=== PATIENT | female | born 1980 | race Caucasian/White ===

== ENCOUNTER 2019-11-19 21:51 | Emergency (ER) | payer BC, OTHER ==
[~2019-11-19] VITALS: Ht 170 cm; Wt 79.0 kg
--- NOTE | 2019-11-19 22:12 | ED Lower Extremity ---
General Chief Complaint: Lower Extremity Stated Complaint: FELL,HIP PAIN Source: patient Exam Limitations: no limitations History of Present Illness Date Seen by Provider: Nov 19, 2019 Time Seen by Provider: 22:00 Initial Comments The patient is a pleasant 39-year-old female presents for evaluation of right hip/pelvis discomfort. She states that this morning she was getting out of her car and almost fell to the ground but caught herself. In the process her right leg abducted and she felt a pop and has been having pain to the lateral right hip as well as the posterior buttock pelvis region. She was able to drive herself to the emergency department but states that she had to rotate in the car seat to decrease her pain. She is able to ambulate into the emergency department but was favoring the opposite leg and was hobbling. She has no other complaints at this time. She is alert and oriented 4, calm, and appears to be in no distress. Onset: this morning Pain/Injury Location: right hip Method of Injury: twisted Modifying Factors: Improves With Movement (makes it worse), Improves With Rest (makes it better) Allergies and Home Medications Allergies Coded Allergies: No Known Drug Allergies (Unverified , 11/19/19) Patient Home Medication List Home Medication List Reviewed: Yes Review of Systems Constitutional: no symptoms reported EENTM: no symptoms reported Respiratory: no symptoms reported Cardiovascular: no symptoms reported Gastrointestinal: no symptoms reported Genitourinary: no symptoms reported Musculoskeletal: joint pain (right hip/pelvis pain) Skin: no symptoms reported Psychiatric/Neurological: No Symptoms Reported All Other Systems Reviewed Negative Unless Noted: Yes Past Ufjdpnd-Lvxsnc-Fhkchg Hx Past Med/Social Hx: Reviewed Nursing Past Med/Soc Hx Patient Social History Recent Foreign Travel: No Contact w/Someone Who Travel: No Physical Exam Vital Signs Vital Signs - First Documented 11/19/19 22:00 Temp 36.0 Pulse 100 Resp 16 B/P (MAP) 119/81 (94) Pulse Ox 98 O2 Delivery Room Air Capillary Refill : Height, Weight, BMI Height: '" Weight: lbs. oz. kg; BMI Method: General Appearance: WD/WN, no apparent distress HEENT: normal ENT inspection, TMs normal, pharynx normal Cardiovascular: regular rate, rhythm, no murmur Respiratory: lungs clear, no respiratory distress Back: normal inspection, no CVA tenderness, no vertebral tenderness Hips: right hip bone tenderness (right lateral hip ), right hip pain, right hip soft tissue tenderness (right posterolateral hip/buttock region) Knees: bilateral knee non-tender, bilateral knee normal inspection, bilateral knee normal range of motion, bilateral knee no evidence of injury Ankles: bilateral ankle non-tender, bilateral ankle normal inspection, bilateral ankle normal range of motion, bilateral ankle no evidence of injury Feet: bilateral foot non-tender, bilateral foot normal inspection, bilateral foot normal range of motion, bilateral foot no evidence of injury Neurologic/Psychiatric: no motor/sensory deficits, alert, normal mood/affect, oriented x 3 Skin: normal color, warm/dry Progress/Results/Core Measures Results/Orders My Orders Orders - HARRY ROBINS DO Urine Bedside (11/19/19 22:07) Ketorolac Injection (Toradol Injection) (11/19/19 22:15) Pelvis With Right Hip 2-3 View (11/19/19 22:09) Medications Given in ED Current Medications Medications Dose Ordered Sig/Ricci Route Start Time Stop Time Status Last Admin Dose Admin Ketorolac Tromethamine 60 mg ONCE ONCE IM 11/19/19 22:15 11/19/19 22:16 DC 11/19/19 22:28 60 MG Vital Signs/I&O 11/19/19 22:00 Temp 36.0 Pulse 100 Resp 16 B/P (MAP) 119/81 (94) Pulse Ox 98 O2 Delivery Room Air Progress Progress Note : Progress Note @2240 - patient updated on imaging results which are acutely unremarkable. Advised that she may have sprained her head or could have injured the labrum. Advise follow-up with orthopedics in the next 1-2 days and return to the Emergency Department immediately for new or worsening symptoms. She expresses verbal understanding and agreement with the plan and is stable for discharge at this time. Departure Impression Primary Impression: Injury of right hip Disposition: 01 HOME, SELF-CARE Condition: Stable Departure-Patient Inst. Decision time for Depature: 22:42 Referrals: CATIA VALADEZ MD Patient Instructions: Hip Pain (DC), Labral Tear of the Hip (DC) Add. Discharge Instructions: Take the prescribed medicine as directed. Return to the emergency Department immediately for new or worsening symptoms. Follow-up with your doctor or the orthopedic doctor provided in the next 2-3 days. Scripts Tramadol HCl (Ultram) 50 Mg Tablet 50 MG PO Q6H PRN for PAIN-MODERATE (5-7) for 5 Days, #15 TAB Prov: HARRY ROBINS DO 11/19/19 HARRY ROBINS DO Nov 19, 2019 22:12
[2019-11-19] MEDS ORDERED: KETOROLAC 60 MG/2 ML VIAL IM ONE (22:15)
[2019-11-19] MEDS ORDERED: TRAM-42 PO (22:44)
[2019-11-19 22:58] VITALS: BP 119/81
--- OUTSIDE RECORDS SUMMARY | 2019-11-20 01:25 | XMS REPORT ---
Author Author Sandra LE Organization [employer] Address Unknown Phone Unavailable Care Team Providers Care Gear Lapper Name Role Phone WILLIAM LE CP Unavailable Allergies No Known Allergies Problems Problem Type Condition ICD-9 Code Onset Dates Condition Statu s Assessment Dental examination V72.2 Active Medications No Known Medications Procedures Procedure Coding System Code Date INTRAORL-PERIAPICAL 1 FILM 45532 CPT-4 D0220 Feb 12, 2015 BITEWING - SINGLE FILM CPT-4 D0270 Feb 12, 2015 LTD ORAL EVALUATION - PROBLEM FOCUS CPT-4 D0140 Feb 12, 2015 Results No Known Results Summary Purpose [employer] Submission
--- OUTSIDE RECORDS SUMMARY | 2019-11-20 01:25 | XMS REPORT | Continuity of Care Document ---
Author Organization Unknown Address Unknown Phone Unavailable Allergies Active Description Code Type Severity Reaction Onset Reported/Identified Relationship to Patient Clinical Status Yes No Known Drug Allergies [id number] Drug Allergy Unknown N/A 11/19/2019 Medications There is no data. Problems There is no data. Procedures There is no data. Results Test Result Range SUREPATH PAP RFX HPV mRNA E6/E7 - 16:21 CLINICAL INFORMATION: NRG LMP: NRG PREV. PAP: NRG PREV. BX: NRG SOURCE: Cervix NRG STATEMENT OF ADEQUACY: NRG INTERPRETATION/RESULT: NRG BUILDING EQUIPMENT OPERATOR: NRG GENERAL CATEGORIZATION: NRG COMMENT: NRG PATHOLOGIST: NRG COMMENT NRG HIV ANTIGEN/ANTIBODY - 04/26/19 16:37 HIV AG/AB, 4TH GEN NON-REACTIVE NON-PADDY CTIVE SYPHILIS (RPR W/ REFLEX CONFIRMATION) - 04/26/19 16:37 RPR (DX) W/REFL TITER AND CONFIRMATORY TESTING NON-REACTIVE NON-REACTIVE HEP B SURFACE ANTIGEN - 04/26/19 16:37 HEPATITIS B SURFACE ANTIGEN NON-REACTIVE NON-REACTIVE Encounters ACCT No. Visit Date/Time Discharge Status Pt. Type Provider Facility Loc./Unit Complaint [id number] 07/04/2019 14:15:00 07/04/2019 23:59: 59 CLS Outpatient [facility] [id number] 04/26/2019 16:15:00 Document Registration [id number] 11/19/2019 21:53:00 020 23:01:00 DIS Emergency SHIMON MCDONALD DO [facility] ER FS FELL,HIP PAIN
--- OUTSIDE RECORDS SUMMARY | 2019-11-20 01:25 | XMS REPORT ---
Author Author Sandra MONTANA Organization [facility] RE Address [address] [place] [address] Care Team Providers Care Motor Builder Winder Name Role Phone KELSEY MONTANA Unavailable PROBLEMS No Known Problems ALLERGIES No Known Allergies ENCOUNTERS Encounter Location Date Diagnosis [facility] [address] [place] [address] Nov, Allergic contact dermatitis, unspecified trigger L23.9 [facility] [address] [place] [address] Aug, Urticaria L50.9 [facility] [address] [place] [address] Aug, Nasopharyngitis [facility] [address] [facility] [id number] [place], [place] [id number] Feb, Dental examination V72.2 IMMUNIZATIONS Vaccine Route Administration Date Status SOLUMEDROL (UP TO 125 MG) IM Intramuscular August 27, 2018 Admin istered SOCIAL HISTORY Never Assessed REASON FOR VISIT left arm swelling after IV tuesday from teeth extraction. eyelid swollen with hiv es x24hr ..elamfu/ma, Took Claritin yesterday PLAN OF CARE Activity Details Follow Up with dentist tomorrow if not improving Reason: VITAL SIGNS Height 67 in 2018-08-27 Weight 215 lbs 2018-08-27 Temperature 98.4 degrees Fahrenheit 2018-08-27 Heart Rate 72 bpm 2018-08-27 Respiratory Rate 20 2018-08-27 Oximetry 98 % 2018-08-27 BMI 33.67 kg/m2 2018-08-27 Blood pressure systolic 122 mmHg 2018-08-27 Blood pressure diastolic 70 mmHg 2018-08-27 MEDICATIONS Medication Instructions Dosage Frequency Start Date End Date Duration S tatus Hydrocodone-Ibuprofen 7.5-200 MG ([place] [facility]) (Prior Auth: Rx Ref#:[id number]) 3 Active Ibuprofen 600 MG (Prior Auth: Rx Ref#:[id number]) 5 Active Amoxicillin 500 MG (Prior Auth: Rx Ref#:[id number]) 4 Active RESULTS No Results PROCEDURES Procedure Date Ordered Result Body Site THER/PROPH/DIAG INJ, SC/IM August 27, 2018 SOLUMEDROL (UP TO 125 MG) August 27, 2018 INSTRUCTIONS MEDICATIONS ADMINISTERED No Known Medications MEDICAL (GENERAL) HISTORY Type Description Date Surgical History tonsillectomy and adenoidectomy Surgical History tubal ligation Surgical History wisdom teeth extraction Surgical History dental surgery 08/25/2018 Hospitalization History see surgeries
--- NOTE | 2019-11-20 05:28 | Diagnostic Imaging Report ---
INDICATION: Fall. Right hip pain. COMPARISON: None. FINDINGS: AP view of the pelvis and single radiographic view of the right hip were obtained. There is no fracture, dislocation, bone destruction, or radiopaque foreign body. The visualized pelvic osseous structures and the SI joints demonstrate no acute fracture or dislocation. There is no bone destruction or radiopaque foreign body. The surrounding soft tissue structures are unremarkable. IMPRESSION: 1. No acute fracture or dislocation in the pelvis or right hip. Dictated by: Dictated on workstation # [id number]
== END 2019-11-19 23:01 | disposition home or self-care (01) ==
LOC: EDUNIT# 21:51 → ER FS 21:53
DX: S79.911A Unspecified injury of right hip, initial encounter (principal); X50.1XXA Overexertion from prolonged static or awkward postures, initial encounter
CPT/HCPCS: 73502